=== PATIENT | female | born 1950 | race Caucasian/White ===

== ENCOUNTER 2020-08-21 06:18 | Inpatient (IN) | payer OTHER ==
[~2020-08-21] VITALS: Ht 157.5 cm; Wt 53.1 kg
[2020-08-21 07:05] VITALS: BP 132/56
[2020-08-21] MEDS ORDERED: BIOTIN10 MG PO (07:33)
[2020-08-21] MEDS ORDERED: LEVO-T25 MCG PO (07:34)
[2020-08-21] MEDS ORDERED: SUPER THERAVIT1 EACH PO (07:35)
[2020-08-21] MEDS ORDERED: MELATONIN3 M1 PO (07:35)
[2020-08-21] MEDS ORDERED: ZINC50 M3 PO (07:36)
[2020-08-21] MEDS ORDERED: VITAMIN D32400 UNIT/ PO (07:36)
[2020-08-21] MEDS ORDERED: ASA81BEC PO (07:36)
[2020-08-21] MEDS ORDERED: LIPITOR40 MG PO (07:37)
[2020-08-21] MEDS ORDERED: PLAVIX 75 MG TA75 MG PO (07:38)
[2020-08-21 07:42] LABS: CALCIUM 9.4 mg/dL (8.5-10.1); CREATININE 1.2 mg/dL (0.6-1.0); POTASSIUM 3.8 mmol/L (3.5-5.1)
[2020-08-21 07:45] LABS: HEMATOCRIT 38.9 % (37.0-47.0); HEMOGLOBIN 13.1 gm/dL (12.0-15.0); MCH 34.8 pg (26.0-34.0); MCHC 33.6 g/dL (28.0-37.0); MCV 103.6 fL (80.0-100.0); RBC 3.75 mil/uL (4.20-5.00); RDW 14.1 % (10.5-14.5); WBC 12.7 thou/uL (4.0-11.0)
[2020-08-21 12:38] LABS: ALBUMIN 2.9 g/dL (3.4-5.0); CALCIUM 8.4 mg/dL (8.5-10.1); CREATININE 1.1 mg/dL (0.6-1.0); POTASSIUM 3.9 mmol/L (3.5-5.1); TOTAL BILIRUBIN 0.4 mg/dL (0.2-1.0); TOTAL PROTEIN 7.1 g/dL (6.4-8.2)
[2020-08-21 12:39] LABS: APTT 57.2 Seconds (24.5-32.8); INR 1.1; PROTIME 11.9 Seconds (10.5-12.1)
[2020-08-21 15:12] VITALS: BP 142/57
--- NOTE | 2020-08-21 19:41 | NUR ---
PATIENT IS ALERT ORIENTED X4. SHE RESTED IN BED FOR 3HRS POST SURGERY AND NO BLEEDING NOTED TO RIGHT GROIN. SHE WENT TO BATHROOM AND BACK AND STILL NO BLEED NOTED. NO COMPLAINTS VOICED. WILL CONT WITH PLAN OF CARE.
[2020-08-21 19:50] VITALS: BP 126/54
[2020-08-21 23:33] VITALS: BP 132/61
[2020-08-22 03:06] LABS: GLYCOHEMOGLOBIN (HGB A1C) 5.4 % (4.8-5.6)
[2020-08-22 03:30] VITALS: BP 109/52
[2020-08-22 04:20] LABS: HEMATOCRIT 35.3 % (37.0-47.0); MCH 35.2 pg (26.0-34.0); MCHC 34.2 g/dL (28.0-37.0); MCV 102.9 fL (80.0-100.0); RBC 3.43 mil/uL (4.20-5.00); RDW 13.9 % (10.5-14.5); WBC 10.5 thou/uL (4.0-11.0)
[2020-08-22 04:33] LABS: ALBUMIN 2.8 g/dL (3.4-5.0); CALCIUM 8.3 mg/dL (8.5-10.1); POTASSIUM 3.8 mmol/L (3.5-5.1); TOTAL BILIRUBIN 0.5 mg/dL (0.2-1.0); TOTAL PROTEIN 6.8 g/dL (6.4-8.2); TROPONIN-I 0.29 ng/mL (<0.06)
--- NOTE | 2020-08-22 05:21 | NUR ---
PT MAKING PROGRESS TOWARDS GOALS. HAS DENIED ANY CHEST PAIN OR NAUSEA. NO REPORTED VISUAL DISTURBANCES. NO COMPLAINTS VOICED. PT STATING THAT SHE IS AGREED TO STAY OVER THE WEEKEND FOR SURGERY WITH DR. GRANT ON TUESDAY.
[2020-08-22 07:55] VITALS: BP 108/57
--- NOTE | 2020-08-22 08:14 | NUR ---
ASSUMED PT CARE AT 0700. PT RESTING. 0800 ASSESSMENT PERFORMED CHARTED. PT VOICES NO CONERNS AT THIS TIME. VSS. WILL CONTINUE TO MONITOR AND FOLLOW POC.
--- NOTE | 2020-08-22 09:10 | NUR ---
Pt reports may have had recent anxiety lately. Has lost about 15 lb unintentionally.
[2020-08-22 11:30] VITALS: BP 111/53
--- NOTE | 2020-08-22 11:31 | NUR ---
ASSESSMENT UNCHANGED, PT VOICES NO CONCERNS AT THIS TIME. WILL CONTINUE TO MONITOR AND FOLLOW POC.
--- NOTE | 2020-08-22 12:00 | EKG ---
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1950 Requested By: Susan Lunsford Order Number: [id number] MD: Durga Kothari Measurements Intervals Grants Rate: 76 P: -15 UT: 141 QRS: -3 QRSD: 87 T: 44 QT: 411 QTc: 463 Interpretive Statements Sinus rhythm Low voltage, precordial leads RSR' in V1 or V2, probably normal variant No previous ECG available for comparison Electronically Signed On 08-22-2020 12:00:17 CDT by Durga Kothari [email or web address] <ELECTRONICALLY SIGNED> By: Durga Kothari MD, [facility] 08/22/20 [facility] 9 9 Durga Kothari MD, FACC /EPI
--- NOTE | 2020-08-22 12:09 | NUR ---
Chart reveiwed and case discussed with the care team. Pt will be here over the weekend with plans for surgery, CEA on Tuesday per CTS/IR. Cardiac rehab consulted. The pt lives indep in an apt alone. She has health ins in place and supportive family. No cm interventions indicated at this time. She is up ad makayla in her room. Will follow along should dc needs arise postop.
--- NOTE | 2020-08-22 15:08 | CATHLAB ---
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 Coronary angiography was performed using coronary diagnostic catheters. The right coronary system was accessed and visualized with a JR4 catheter. The left coronary system was accessed and visualized with a JL4 catheter. The left ventricle was accessed and visualized with a PIGTAIL catheter. Left ventricular/Aortic Valve gradient assessed via catheter pullback. Left ventriculogram was performed in 30 degree projection. Closure device was deployed with a 6 Fr MYNXGRIP 6/7F [id number]. The patient tolerated the procedure well and there were no complications associated with the procedure. There was no hematoma. Intraoperative Conscious Sedation Sedation start time: 09:37 Case end Time: 11:00 Fentanyl 50 mcg Versed 1 mg [facility] [place] [address] INVASIVE PROCEDURE REPORT Name: VALLEIDA Room #: 208-P [facility] IN ..#: [id number] Admission: 08/21/20 Attend Phys: Preston Lancaster, Discharge: Date of : 48 Report #: [id number] Fluoro Time: 23.50 minutes Dose: DAP 72604.10 cGycm2 1609 mGy Contrast Type and Amount: Omnipaque 160 ml Hemodynamics The aortic pressure is 190/61 mmHg with a mean of 113 mmHg. The left ventricular pressure is 171/10 mmHg with a mean of mmHg. The left ventricular end diastolic pressure is 24 mmHg. PCI Technique Lesion Percutaneous coronary intervention was performed on the mid right coronary artery. A 6F JR4 LAUNCHER Guide Catheter was used to engage the ostium. A .014 LUGE WIRE 182CM Interventional Guidewire was used to cross the lesion. BALLOON DILATION A Balloon catheter Sprinter OTW 2.5 x 12 #[id number] was inserted and inflated up to 12atm for 25seconds. Additional Inflation: 16atm for 28seconds. A second balloon, 2.75 x 12 Sprinter OTW, was inserted and inflated up to 16 dennys for 29 seconds. Additional inflation: 16 dennys for 18 seconds. Additional inflation: 16 dennys for 18 seconds. A STENT DEPLOYMENT A drug-eluting stent RESOLUTE NAMRATA OTW 2.75 X 12 #[id number] was inserted and inflated up to 18.00atm for 29seconds. Conclusion #1. Status post PTCA stent of a high-grade mid RCA lesion 95% to 0%. Placement of a 2.75 x 12 resolute [place] postdilated 2.[address] grade III flow. There is a 60% ostial lesion and a more distal 50 to 60% lesion will follow. This is dominant system. #2 left main free of disease giving rise to LAD and circumflex. #3 the LAD is well preserved with minimal proximal calcification no occlusive disease. #4 circumflex OM is nondominant with proximal calcification no occlusive disease. #5 normal left jugular size and systolic function EF 60% Recommendations and plan: Continue aggressive risk factor modification. This intervention was technically challenging due to tortuosity and calcification. Final result was good. Resolution of chest pain and EKG changes. Transfer to CCU to follow post stent protocol. [facility] [address] [place] [address] INVASIVE PROCEDURE REPORT Name: VALLEIDA BRIDGES Room #: 208-P [facility] IN M.R.#: [id number] Admission: 08/21/20 Attend Phys: Preston Lancaster, Discharge: Date of : 48 Report #: [id number] Patient in need carotid intervention. Carotid endarterectomy to be performed on dual antiplatelet therapy. <ELECTRONICALLY SIGNED> By: Buddy Abreu MD, FACC 08/22/20 1508 1508 1508 Buddy Abreu MD, FAC /INF
[2020-08-22 15:30] VITALS: BP 144/55
[2020-08-22 19:45] VITALS: BP 109/54
--- NOTE | 2020-08-23 03:53 | NUR ---
ASSESSMENTS CHARTED, MEDS CHARTED GIVEN. RESTING EASLILY IN BED DURING SHIFT. PATIENT UP AT PIO IN ROOM. PATIENT SCHEDULED FOR PROCEDURE ON TUESDAY. FALL PRECAUTIONS IN PLACE DURING SHIFT.
[2020-08-23 04:50] VITALS: BP 113/54
[2020-08-23 07:59] VITALS: BP 93/49
--- NOTE | 2020-08-23 09:59 | NUR ---
PT IS AXOX4, PLEASANT; DENIES PAIN, BUT STATES SHE MOVES BTWN BED AND CHAIR FOR LOWER BACK PAIN. PT SITTING IN CHAIR. VS BP SOFT, AFEBRILE, SR ON MONITOR. PT HAD CARDIAC CATH R GROIN, C/D/I, NO HEMATOMA. PT STATES NO PAIN AT SITES. POC IS FOR PT TO REMAIN IN CCU UNTIL CARDIAC ENDARECTOMY ON 08/25/20. LOW FALL PRECAUTIONS, PT IS UP AD PIO IN ROOM, AND TO TOILET. EDUCATED PT IF ANY FEELINGS OF VERTIGO TO CALL OUT. PT COMMUNICATED UNDERSTANDING. NO CONCERNS AT THIS TIME.
--- NOTE | 2020-08-23 10:25 | HC ---
[facility] [place] [address] CONSULTATION Name: LEIDA NEAL Room #: 208-P ADM IN M.R.#: [id number] Admission: 08/21/20 Attend Phys: Preston Lancaster MD Discharge: Date of : 48 Report #: [id number] THIS REPORT FOR: cc: NO FAMILY PHYSICIAN or PCP NO FAMILY PHYSICIAN or PCP Bj Rey MD ~ DOC #: [id number] Bj Rey MD DATE OF SERVICE: 08/21/2020 We were asked to see the patient by Dr. Lancaster and Dr. Abreu. HISTORY OF PRESENT ILLNESS: The patient is a 70-year-old with coronary and carotid artery disease. The patient presents with a history of right-sided amaurosis fugax as well as left hand weakness. Symptoms have been ongoing intermittently since the fall in 2019. Recent carotid duplex done after the discovery of a bruit in the office demonstrated a 90% stenosis of the right internal carotid artery. Today, the patient had cardiac catheterization and carotid artery and coronary artery catheterization. In the carotid artery, a 90% right carotid stenosis was identified and a coronary lesion was identified as well. A coronary stent was placed and the patient was started on dual antiplatelet therapy. PAST MEDICAL HISTORY: Significant for dyslipidemia. The patient is hypothyroid and takes treatment for this. The patient denies specific history of diabetes or hypertension. MEDICATIONS AT HOME: Includes aspirin, atorvastatin, levothyroxine, vitamins, Plavix was started today. ALLERGIES: None known. SOCIAL HISTORY: The patient lives alone. She is a longtime smoker who is committed to quitting. FAMILY HISTORY: Significant for heart disease in brother. REVIEW OF SYSTEMS: GENERAL: No change in weight. EYES: No vision change. Wears glasses. We do note the recent history of amaurosis fugax that did not present as a transient monocular vision loss like a shade covering the eye that only last 15 seconds. HEENT: No headache, no hearing problems, no sinus problems. RESPIRATORY: No cough, no shortness of breath. CARDIAC: No angina, no palpitations. [facility] [address] [place] [address] CONSULTATION Name: LEIDA NEAL Room #: 208-P [facility] IN M.R.#: [id number] Admission: 08/21/20 Attend Phys: Preston Lancaster MD Discharge: Date of : 48 Report #: [id number] GASTROINTESTINAL: No nausea, vomiting blood. GENITOURINARY: No urgency, frequency or blood. MUSCULOSKELETAL: No bone or joint pain. SKIN: No rash or infection. NEUROLOGIC: The patient has had decreased motion and sensation in the left hand chronically for the last several months, but she is able to work. HEMATOLOGIC: No bruisability or bleeding. ENDOCRINE: No goiter, no tremor. PHYSICAL EXAMINATION: GENERAL: The patient is a pleasant woman in bed after procedures today. VITAL SIGNS: Temperature 36.3, heart rate 65, respiratory rate 16, blood pressure 142/57, O2 sat 99% on room air. HEENT: No scleral icterus. No arcus. NECK: Loud right cervical bruit, no bruit on the left. No cervical masses palpated. CHEST: Clear to auscultation. HEART: Rhythm regular, no murmur. ABDOMEN: Soft, no mass, no tenderness. EXTREMITIES: No clubbing, cyanosis or edema. SKIN: No rash or infection. NEUROLOGIC: Full motion and sensation as tested in bed. PSYCHIATRIC: Oriented x 3, appropriate shows insight into problem. ASSESSMENT: The patient has a high-grade carotid artery disease. She has been started on dual platelet therapy and we have scheduled carotid endarterectomy for Tuesday. Risks and details of surgery, options and alternatives were discussed. The patient understands all of this and wishes to proceed. It is a privilege to participate in this challenging the patient's care. Thank you for the consult. Bj Rey MD JF/ALL <ELECTRONICALLY SIGNED> By: Bj Rey MD 08/23/20 1025 1513 1550 Bj Rey MD /nt
[2020-08-23 11:55] VITALS: BP 87/60
[2020-08-23 15:08] VITALS: BP 96/44
[2020-08-23 20:15] VITALS: BP 122/53
[2020-08-24 04:34] VITALS: BP 100/54
--- NOTE | 2020-08-24 07:48 | NUR ---
[facility]/VITALS STABLE. DENIES ANY PAIN. STEADY GAIT. TOLERATES ACTIVITY WELL. ASSESSMENT CHARTED. PROGRESSING WELL WITH POC. RIGHT GROIN SITE FRPOM PREVIOUS CATH C/D/I. BRUIT HEARD OVER RIGHT CAROTID ON AUSCUTATION. PLAN IS FOR POSSIBLE CAROTID ENDARTERECTOMY ON TUESDAY. WILL CONTIUE TO MONITOR AND FOLLOW WITH POC. NO DISTRESS NOTED
[2020-08-24 08:05] VITALS: BP 104/51
[2020-08-24 11:11] VITALS: BP 127/55
[2020-08-24 15:19] VITALS: BP 103/50
[2020-08-24 19:57] VITALS: BP 109/52
[2020-08-25 03:58] VITALS: BP 120/66
--- NOTE | 2020-08-25 04:26 | NUR ---
A/O X 4.DENIES PAIN AND SOB.NPO SINCE MIDNIGHT FOR A POSSIBLE PROCEDURE TODAY.HIBICLENS BATH GIVEN TWICE THIS SHIFT.MONITOR SHOWS SINUS ARRHYTHMIA.POC CONTINUED.
--- NOTE | 2020-08-25 12:15 | NUR ---
ASSUMED CARE SHIFT CHANGE 08/24/20. ASSESSMENTS CHARTED MEDS GIVEN. AUDIBLE BRUIT R CAROTID, CTS AWARE, PLAN FOR CAROTID ENDARTERECTOMY 08/25. PT UP AD PIO BRYCE WELL. NO C/O PAIN/CP/SOB. ROOM AIR. QUESTIONS ANSWERED REGARDING POC. RN TO CONT POC. REPORT PASSED TO NOC RN.
[2020-08-25 13:04] VITALS: BP 89/39
[2020-08-25 13:10] VITALS: BP 80/40
--- NOTE | 2020-08-25 13:43 | NUR ---
1300-RECEIVED PT INTO ROOM 248 FROM RR. PT DENIES PAIN,A LITTLE DISCOMFORT ONLY. [id number]-250ML FLD BOLUS BEING GIVEN UNTIL REACHED.--VW 1315-NGHIA [place], IN TO SEE.--VW 1330-SPOKE W . WAITING ON SUSANA FROM PHARMACY.--VW 1345- IN TO SEE.--VW
[2020-08-26 04:09] VITALS: BP 99/41
--- NOTE | 2020-08-26 04:34 | NUR ---
Patient awake an pleasant through the evening. Pain pill given at HS for neck discomfort. Patient then did sleep most of the night. No further conplaints of pain. Heart rate and rhythm remains 40- 60's sinus with atrial arrythmia. Started the shift on 15 mcgs of Wm to miantain blood pressures > 90. Was able to titrate off Wm by 0200. Pressures now in the 120's. Remains on room air with adequate oxygenation. Taking po well. Large U/O from [place]. No family called or visited this shift. AM labs drawn, awaiting results. Patient is progressing towards goals and is anticipating discharge to home today. See documemtation on interventions for assessment details.
[2020-08-26 04:49] LABS: HEMATOCRIT 28.9 % (37.0-47.0); HEMOGLOBIN 9.8 gm/dL (12.0-15.0); MCH 34.9 pg (26.0-34.0); MCHC 33.8 g/dL (28.0-37.0); MCV 103.2 fL (80.0-100.0); RBC 2.8 mil/uL (4.20-5.00); RDW 13.8 % (10.5-14.5)
[2020-08-26 05:11] LABS: CALCIUM 7.8 mg/dL (8.5-10.1); CREATININE 0.9 mg/dL (0.6-1.0); POTASSIUM 4.3 mmol/L (3.5-5.1)
[2020-08-26 07:00] VITALS: BP 114/58
--- NOTE | 2020-08-26 07:11 | NUR ---
ASSUMMED CARE OF THIS PATIENT FROM THE NIGHT NURSE, JUANITA ROCHA. PATIENT IS ALERT AND COOPERATIVE, DENIES PAIN. WATCHING TV. SPEECH IS CLEAR.
[2020-08-26 08:01] VITALS: BP 114/46
[2020-08-26 12:03] VITALS: BP 117/47
--- NOTE | 2020-08-26 12:15 | O ---
[facility] [place] [address] OPERATIVE REPORT Name: LEIDA NEAL Room #: 248-P ADM IN M.R.#: [id number] Admission: 08/21/20 Attend Phys: Preston Lancaster MD Discharge: Date of : 48 Report #: [id number] THIS REPORT FOR: cc: NO FAMILY PHYSICIAN or PCP NO FAMILY PHYSICIAN or PCP Bj Rey MD ~ DOC #: [id number] Bj Rey MD DATE OF SERVICE: 08/25/2020 PREOPERATIVE DIAGNOSIS: Right carotid artery stenosis. POSTOPERATIVE DIAGNOSIS: Right carotid artery stenosis. OPERATION: Right carotid endarterectomy with patch closure. SURGEON: Bj Rey MD INSURANCE BILLER: TICO [place] (Jeremy) ANESTHESIA: General. INDICATION: The patient is a 70-year-old with a 90% right carotid stenosis. The patient has a history of amaurosis fugax and left-sided weakness. The patient also had coronary angiogram with right coronary stent placement earlier this admission. FINDINGS AND TECHNIQUE: After general anesthesia was established, an incision was made in the right neck. Common facial vein was divided. Common internal and external carotid artery and the superior thyroid artery were identified and controlled. A 10,000 units of heparin were given. Continuous electroencephalographic monitoring was performed during the operation when the carotid vessels were occluded, no EEG changes were noted. The carotid arteriotomy was made. The endarterectomy was performed without creating a distal flap. Neointima was inspected debris was removed. Tacking sutures were placed at the transition zone. When the endarterectomy was deemed satisfactory, the arteriotomy was closed with thin walled pericardial patch and running Prolene. Prior to finishing the closure, the carotid vessels were back bled and the artery was irrigated with heparinized saline. Flow was established first through the external and then the internal carotid. Protamine was given to reverse the heparin. When hemostasis was satisfactory, wound was irrigated with antibiotic solution. [facility] [address] [place] [address] OPERATIVE REPORT Name: LEIDA NEAL Room #: 248-P [facility] IN .R.#: [id number] Admission: 08/21/20 Attend Phys: Preston Lancaster MD Discharge: Date of : 48 Report #: [id number] A Jens drain was brought out through the bottom pole of the incision and the wound was closed in layers. The patient was taken to the recovery area, where a neurologic progress was monitored. All counts reported as correct. MD PEG Beaulieu/KELTON/MARIE <ELECTRONICALLY SIGNED> By: Bj Rey MD 08/26/20 1215 0945 1200 Bj Rey MD /nt
[2020-08-26 15:53] VITALS: BP 129/51
--- NOTE | 2020-08-26 18:10 | NUR ---
PATIENT IS PROGRESSING TOWARDS OUTCOME GOALS. UP IN THE CHAIR TODAY, STEADY ON FEET WITH STANDBY ASSISTANCE TO THE BSC. VOIDING WITHOUT DIFFICULTY. NEURO STATUS STABLE. PAIN MANAGED WITH TYLENOL.
[2020-08-26 19:23] VITALS: BP 117/47
[2020-08-27] VITALS: BP 110/53
[2020-08-27 01:42] VITALS: BP 108/52
[2020-08-27 05:05] VITALS: BP 118/55
--- NOTE | 2020-08-27 06:28 | NUR ---
PT PROGRESSING TOWARDS GOALS. PT WITH ONLY MINOR COMPLAINTS OF PAIN THROUGHOUT THE NIGHT, TREATED WITH TYLENOL. PT WAS ABLE TO WALK AROUND THE UNIT AT THE BEGINING OF THE EVENING AND GET A GOOD NIGHTS REST. VSS. PLAN TO DC HOME TODAY. TICO DONALD AT BEDSIDE NOW DISCUSSING PLAN.
[2020-08-27 07:21] VITALS: BP 122/56
[2020-08-27 10:06] VITALS: BP 118/55
[2020-08-27 10:45] VITALS: BP 139/59
--- NOTE | 2020-08-27 10:45 | NUR ---
dischaged home. All belongings with pt. All questions anwered.
--- NOTE | 2020-08-28 11:08 | PATH ---
[facility] [address] [place] [address] PATHOLOGY RPT PROCEDURE Name: CORINNE NEAL Room #: 248-P DIS IN M.R.#: [id number] Admission: 08/21/20 Date of : 48 Discharge: 08/27/20 Report #: [id number] Path Case #: [id number] [facility] Accession Number: [id number] . 01 Material submitted: . carotid body - RIGHT CAROTID PLAQUE. Modifiers: right . 01 Clinical history: . CAROTID ENDARTERECTOMY RIGHT CARITED STENOSIS . 02 Diagnosis: Right carotid plaque, endarterectomy: - Vessel wall with myxoid changes and adherent calcific atherosclerosis. . (IUV:mml; 08/27/2020) QLM 08/27/2020 1711 Local . 02 Electronically signed: . Ronna Stoner MD, Pathologist NPI- [id number] . 01 Gross description: . Received in formalin labeled "Jaylin, Corinne and right carotid plaque". Received is a white-yellow elastic vessel fragment measuring 3.5 cm in length by 0.7 cm in diameter with a wall thickness of 0.1-0.2 cm. The lumen measuring 0.5-0.6 cm is stenosed 95% with firm white-yellow calcified plaque. The specimen is representatively submitted in cassette A1 after light decalcification.([facility]; 08/25/2020) J/[facility] 08/25/2020 1932 Local . 02 Pathologist provided ICD-10: I65.21 . 02 CPT . 204990, 102125 Specimen Comment: A courtesy copy of this report has been sent to [phone] Specimen Comment: Report sent to Performed at: [address] [id number] MD Rich Ordaz MD Phone: [phone] Performed at: [address] [id number] MD Ronna Stoner MD Phone: [phone]
== END 2020-08-27 10:45 | disposition home or self-care (01) | DRG 26 ==
LOC: CATH 06:18 → 2N 11:16 → ICU 11:16 → CATH 11:26 → TBA 08-25 11:41 → ICU 08-25 13:37
PROVIDERS: Nurse Practitioner Adult Health; Physician Assistant; Surgery Vascular Surgery; ADMIT Nuclear Medicine Nuclear Cardiology; ATTEND Nuclear Medicine Nuclear Cardiology
PROC: B31Q1ZZ Fluoroscopy of Cervico-Cerebral Arch using Low Osmolar Contrast (ICD-10-PCS; principal; 2020-08-21)
PROC: B4181ZZ Fluoroscopy of Bilateral Renal Arteries using Low Osmolar Contrast (ICD-10-PCS; principal; 2020-08-21)
PROC: B4151ZZ Fluoroscopy of Inferior Mesenteric Artery using Low Osmolar Contrast (ICD-10-PCS; principal; 2020-08-21)
PROC: 4A023N7 Measurement of Cardiac Sampling and Pressure, Left Heart, Percutaneous Approach (ICD-10-PCS; principal; 2020-08-21)
PROC: B31C1ZZ Fluoroscopy of Bilateral External Carotid Arteries using Low Osmolar Contrast (ICD-10-PCS; principal; 2020-08-21)
PROC: B31F1ZZ Fluoroscopy of Left Vertebral Artery using Low Osmolar Contrast (ICD-10-PCS; principal; 2020-08-21)
PROC: B41D1ZZ Fluoroscopy of Aorta and Bilateral Lower Extremity Arteries using Low Osmolar Contrast (ICD-10-PCS; principal; 2020-08-21)
PROC: B3151ZZ Fluoroscopy of Bilateral Common Carotid Arteries using Low Osmolar Contrast (ICD-10-PCS; principal; 2020-08-21)
PROC: B2111ZZ Fluoroscopy of Multiple Coronary Arteries using Low Osmolar Contrast (ICD-10-PCS; principal; 2020-08-21)
PROC: B2151ZZ Fluoroscopy of Left Heart using Low Osmolar Contrast (ICD-10-PCS; principal; 2020-08-21)
PROC: 027034Z Dilation of Coronary Artery, One Artery with Drug-eluting Intraluminal Device, Percutaneous Approach (ICD-10-PCS; principal; 2020-08-21)
PROC: B3181ZZ Fluoroscopy of Bilateral Internal Carotid Arteries using Low Osmolar Contrast (ICD-10-PCS; principal; 2020-08-21)
PROC: 03CK3ZZ Extirpation of Matter from Right Internal Carotid Artery, Percutaneous Approach (ICD-10-PCS; 2020-08-25)
PROC: 03UK3KZ Supplement Right Internal Carotid Artery with Nonautologous Tissue Substitute, Percutaneous Approach (ICD-10-PCS; 2020-08-25)
DX: I65.21 Occlusion and stenosis of right carotid artery (principal); K55.1 Chronic vascular disorders of intestine; I25.10 Atherosclerotic heart disease of native coronary artery without angina pectoris; D50.0 Iron deficiency anemia secondary to blood loss (chronic); Z20.822 Contact with and (suspected) exposure to COVID-19; E78.5 Hyperlipidemia, unspecified; E03.9 Hypothyroidism, unspecified; Z60.2 Problems related to living alone; R00.0 Tachycardia, unspecified; I10 Essential (primary) hypertension; E78.00 Pure hypercholesterolemia, unspecified; Z79.899 Other long term (current) drug therapy; Z82.49 Family history of ischemic heart disease and other diseases of the circulatory system; Z87.891 Personal history of nicotine dependence
CPT/HCPCS: 10078; 10081; 10203; 47375; 48888; 48889; 50010; 50101; 50386; 50417; 50455; 51301; 52279; 52287; 54118; 56524; 56526; 56528; 56531; 56534; 57254; 58585; 62110; 62900; 65020; 70005

== ENCOUNTER → 2020-10-20 | Outpatient (CLI) | payer OTHER ==
[~2020-10-20] MED LIST: ASA81BEC PO; BIOTIN10 MG PO; LEVO-T25 MCG PO; LIPITOR40 MG PO; MELATONIN3 M1 PO; PLAVIX 75 MG TA75 MG PO; SUPER THERAVIT1 EACH PO; VITAMIN D32400 UNIT/ PO; ZINC50 M3 PO
== END ==
LOC: SJCVCIMAG 10:25
PROVIDERS: ATTEND Internal Medicine Cardiovascular Disease
DX: I65.22 Occlusion and stenosis of left carotid artery (principal); I73.9 Peripheral vascular disease, unspecified; M79.604 Pain in right leg; M79.605 Pain in left leg; I77.9 Disorder of arteries and arterioles, unspecified; Z79.899 Other long term (current) drug therapy; Z87.891 Personal history of nicotine dependence